=== PATIENT | female | born 1935 | race Caucasian/White ===

== ENCOUNTER 2022-04-27 04:44 | Day surgery (SDC) | payer OTHER ==
[2022-04-23 14:26] VITALS: BMI 29.2
[~2022-04-27 04:44] MED LIST: LIDOCAINE HCL 1% PRESERVATIVE FREE - 30ML VIAL IJ ONE; LIDOCAINE HCL/PF 2% SDV 5ML VIAL PNB ONE
[2022-04-27] MEDS ORDERED: LIDOCAINE HCL/PF 1% SDV 5ML VIAL ONE (07:32)
[2022-04-27] MEDS ORDERED: LIDOCAINE HCL/PF 2% SDV 5ML VIAL ONE (07:50)
[2022-04-27] MEDS ORDERED: LIDOCAINE HCL/PF 2% SDV 5ML VIAL PNB ONE ×2 (11:19→12:00)
[2022-04-27] MEDS ORDERED: LIDOCAINE HCL 1% PRESERVATIVE FREE - 30ML VIAL IJ ONE ×3 (11:19→11:59)
[2022-04-27 12:37] VITALS: TEMP 98.2
[2022-04-27 13:21] VITALS: BP 144/65; PULSE 77
== END 2022-04-27 13:15 | disposition home or self-care (01) ==
LOC: JASU-SURG 04:44
PROVIDERS: ATTEND Pain Medicine Pain Medicine
PROC: 01HY3MZ Insertion of Neurostimulator Lead into Peripheral Nerve, Percutaneous Approach (ICD-10-PCS; principal; 2022-04-27 08:00)
DX: G89.4 Chronic pain syndrome (principal); M25.512 Pain in left shoulder
CPT/HCPCS: 64555; C1897

== ENCOUNTER 2022-05-25 04:19 | Day surgery (SDC) | payer OTHER ==
[2022-05-24 10:14] VITALS: BMI 29.2
[2022-05-25] MEDS ORDERED: DEXAMETHASONE SOD PHOSPHATE 10 MG/1 ML VIAL ONE (07:13)
[2022-05-25] MEDS ORDERED: LIDOCAINE HCL/PF 1% SDV 5ML VIAL ONE (07:13)
[2022-05-25] MEDS ORDERED: BUPIVACAINE HCL/PF 0.5% (5MG/ML) 10 ML VIAL ONE (07:13)
[2022-05-25] MEDS ORDERED: LIDOCAINE HCL 1%, 10 MG/ML (20ML VIAL) INF ONE ×2 (13:52)
[2022-05-25] MEDS ORDERED: BUPIVACAINE HCL/PF 0.5% (5MG/ML) 10 ML VIAL IJ ONE ×2 (13:52)
[2022-05-25 15:01] VITALS: BP 160/87; PULSE 84; RESP 20; TEMP 98.3
== END 2022-05-25 14:43 | disposition home or self-care (01) ==
LOC: JASU-SURG 04:19
PROVIDERS: ATTEND Pain Medicine Pain Medicine
PROC: 01HY3MZ Insertion of Neurostimulator Lead into Peripheral Nerve, Percutaneous Approach (ICD-10-PCS; principal; 2022-05-25 09:30)
DX: G89.4 Chronic pain syndrome (principal); M25.512 Pain in left shoulder
CPT/HCPCS: 64555; C1778; J1100

== ENCOUNTER 2023-03-15 04:10 | Day surgery (SDC) | payer OTHER ==
[2023-02-18 11:28] VITALS: BMI 28.3
[~2023-03-15 04:10] MED LIST changes: +ACETAMINOPHEN 500 MG TABLET (FP) PO PRN; -LIDOCAINE HCL 1% PRESERVATIVE FREE - 30ML VIAL IJ ONE; -LIDOCAINE HCL/PF 2% SDV 5ML VIAL PNB ONE
[2023-03-15] MEDS ORDERED: BUPIVACAINE HCL/PF 0.75% 10 ML VIAL ONE (07:25)
[2023-03-15] MEDS ORDERED: DEXAMETHASONE SOD PHOSPHATE 10 MG/1 ML VIAL ONE (07:25)
[2023-03-15] MEDS ORDERED: TRIAMCINOLONE ACET 40MG/1ML VIAL ONE (07:25)
[2023-03-15] MEDS ORDERED: LIDOCAINE HCL/PF 1% SDV 5ML VIAL ONE (07:25)
[2023-03-15 09:19] VITALS: RESP 18
[2023-03-15 09:34] VITALS: BP 160/70; TEMP 98
[2023-03-15 09:38] VITALS: PULSE 88
[2023-03-15] MEDS ORDERED: ACETAMINOPHEN 500 MG TABLET (FP) PO PRN (12:32)
== END 2023-03-15 09:30 | disposition home or self-care (01) ==
LOC: JASU-SURG 04:10
PROVIDERS: ATTEND Pain Medicine Pain Medicine
PROC: 01HY3MZ Insertion of Neurostimulator Lead into Peripheral Nerve, Percutaneous Approach (ICD-10-PCS; principal; 2023-03-15 08:40)
DX: G89.4 Chronic pain syndrome (principal)
CPT/HCPCS: 64555; C1778; J1100

== ENCOUNTER 2024-02-24 03:42 | Day surgery (SDC) | payer OTHER ==
[2024-01-27 17:27] VITALS: BMI 29.7
[2024-02-24] MEDS ORDERED: LIDOCAINE HCL/PF 1% SDV 5ML VIAL ONE (06:59)
[2024-02-24] MEDS ORDERED: ACETAMINOPHEN 500 MG TABLET (FP) PO PRN (10:25)
[2024-02-24] MEDS: LIDOCAINE HCL 1% PRESERVATIVE FREE - 30ML VIAL IJ ONE ×2 (10:43)
[2024-02-24 11:36] VITALS: BP 127/56; PULSE 72; RESP 20; TEMP 97.3
== END 2024-02-24 11:38 | disposition home or self-care (01) ==
LOC: JASU-SURG 03:42
PROVIDERS: ATTEND Pain Medicine Pain Medicine
PROC: 01HY3MZ Insertion of Neurostimulator Lead into Peripheral Nerve, Percutaneous Approach (ICD-10-PCS; principal; 2024-02-24 09:30)
DX: G89.4 Chronic pain syndrome (principal); M54.31 Sciatica, right side
CPT/HCPCS: 64555; C1778

== ENCOUNTER 2024-03-29 04:03 | Day surgery (SDC) | payer OTHER ==
[2024-03-22 15:13] VITALS: BMI 29.7
[2024-03-29] MEDS ORDERED: LIDOCAINE HCL/PF 1% SDV 5ML VIAL ONE (07:08)
[2024-03-29 07:36] VITALS: RESP 16
[2024-03-29] MEDS: LIDOCAINE 1% P/F 10 MG/ML VIAL INF ONE (09:08)
[2024-03-29 09:26] VITALS: BP 128/68; PULSE 62; TEMP 97.7
== END 2024-03-29 10:12 | disposition home or self-care (01) ==
LOC: JASU-SURG 04:03
PROVIDERS: ATTEND Pain Medicine Pain Medicine
PROC: 01HY3MZ Insertion of Neurostimulator Lead into Peripheral Nerve, Percutaneous Approach (ICD-10-PCS; principal; 2024-03-29 08:45)
DX: G89.4 Chronic pain syndrome (principal); M25.512 Pain in left shoulder
CPT/HCPCS: 64555; C1778

== ENCOUNTER 2024-05-04 04:08 | Day surgery (SDC) | payer OTHER ==
[2024-05-02 12:04] VITALS: BMI 30.1
[2024-05-04] MEDS ORDERED: LIDOCAINE HCL/PF 1% SDV 5ML VIAL ONE (07:14)
[2024-05-04] MEDS: LIDOCAINE 1% P/F 10 MG/ML VIAL PNB ONE (08:42)
[2024-05-04 09:09] VITALS: PULSE 70; RESP 20; TEMP 98
[2024-05-04] MEDS ORDERED: ACETAMINOPHEN 500 MG TABLET (FP) PO PRN (09:20)
[2024-05-04 09:22] VITALS: BP 106/61
== END 2024-05-04 09:42 | disposition home or self-care (01) ==
LOC: JASU-SURG 04:08
PROVIDERS: ATTEND Pain Medicine Pain Medicine
PROC: 01HY3MZ Insertion of Neurostimulator Lead into Peripheral Nerve, Percutaneous Approach (ICD-10-PCS; principal; 2024-05-04 08:42)
DX: G89.4 Chronic pain syndrome (principal); M25.512 Pain in left shoulder
CPT/HCPCS: 64555; C1778

== ENCOUNTER 2024-05-17 05:04 | Day surgery (SDC) | payer OTHER ==
[2024-05-17] MEDS ORDERED: LIDOCAINE HCL/PF 1% SDV 5ML VIAL ONE (07:11)
[2024-05-17] MEDS: LIDOCAINE 1% P/F 10 MG/ML VIAL INF ONE ×2 (10:00)
[2024-05-17 10:27] VITALS: BP 150/61; PULSE 70; RESP 20; TEMP 98.1
== END 2024-05-17 11:08 | disposition home or self-care (01) ==
LOC: JASU-SURG 05:04
PROVIDERS: ATTEND Pain Medicine Pain Medicine
PROC: 01HY3MZ Insertion of Neurostimulator Lead into Peripheral Nerve, Percutaneous Approach (ICD-10-PCS; principal; 2024-05-17 09:00)
DX: G89.4 Chronic pain syndrome (principal)
CPT/HCPCS: 64555; C1778

== ENCOUNTER 2024-07-12 04:08 | Day surgery (SDC) | payer OTHER ==
[2024-07-12] MEDS ORDERED: LIDOCAINE HCL/PF 1% SDV 5ML VIAL ONE (07:23)
[2024-07-12] MEDS ORDERED: DEXAMETHASONE SOD PHOSPHATE 10 MG/1 ML VIAL ONE ×2 (07:24→11:25)
[2024-07-12 09:28] VITALS: RESP 17
[2024-07-12] MEDS ORDERED: ACETAMINOPHEN 500 MG TABLET (FP) PO PRN (10:49)
[2024-07-12] MEDS: LIDOCAINE HCL 1% PRESERVATIVE FREE - 30ML VIAL IJ ONE (11:29)
[2024-07-12] MEDS: DEXAMETHASONE SOD PHOSPHATE 10 MG/1 ML VIAL IVPUSH ONE (11:30)
[2024-07-12] MEDS: IOHEXOL 180 MG/1 ML ML IJ ONE (11:32)
[2024-07-12 12:48] VITALS: BP 133/61; PULSE 63; TEMP 97.7
== END 2024-07-12 12:00 | disposition home or self-care (01) ==
LOC: JASU-SURG 04:08
PROVIDERS: ATTEND Pain Medicine Pain Medicine
PROC: 3E0R3BZ Introduction of Anesthetic Agent into Spinal Canal, Percutaneous Approach (ICD-10-PCS; 2024-07-12)
PROC: 3E0R33Z Introduction of Anti-inflammatory into Spinal Canal, Percutaneous Approach (ICD-10-PCS; principal; 2024-07-12 10:30)
DX: M54.16 Radiculopathy, lumbar region (principal); M48.061 Spinal stenosis, lumbar region without neurogenic claudication
CPT/HCPCS: 76000-TC-FY; J1100

== ENCOUNTER 2024-09-06 04:14 | Day surgery (SDC) | payer OTHER ==
[2024-09-06] MEDS ORDERED: ACETAMINOPHEN 500 MG TABLET (FP) PO PRN (09:22)
[2024-09-06 14:09] VITALS: RESP 18
[2024-09-06] MEDS ORDERED: LIDOCAINE HCL/PF 1% SDV 5ML VIAL ONE (15:06)
[2024-09-06] MEDS: LIDOCAINE HCL 1% PRESERVATIVE FREE - 30ML VIAL NR ONE (15:22)
[2024-09-06] MEDS: DEXAMETHASONE SOD PHOSPHATE 10 MG/1 ML VIAL IVPUSH ONE (15:22)
[2024-09-06] MEDS: IOHEXOL 180 MG/1 ML ML IJ ONE (15:22)
[2024-09-06 16:20] VITALS: BP 139/50; PULSE 64; TEMP 97.5
== END 2024-09-06 15:50 | disposition home or self-care (01) ==
LOC: JASU-SURG 04:14
PROVIDERS: ATTEND Pain Medicine Pain Medicine
PROC: 3E0R3BZ Introduction of Anesthetic Agent into Spinal Canal, Percutaneous Approach (ICD-10-PCS; 2024-09-06)
PROC: 3E0R33Z Introduction of Anti-inflammatory into Spinal Canal, Percutaneous Approach (ICD-10-PCS; principal; 2024-09-06 15:45)
DX: M48.061 Spinal stenosis, lumbar region without neurogenic claudication (principal); M54.16 Radiculopathy, lumbar region
CPT/HCPCS: 76000-TC-FY; J1100

== ENCOUNTER 2024-11-02 04:10 | Day surgery (SDC) | payer OTHER ==
[2024-11-02] MEDS ORDERED: LIDOCAINE HCL/PF 2% SDV 5ML VIAL ONE ×2 (07:08→07:32)
[2024-11-02] MEDS ORDERED: LIDOCAINE HCL/PF 1% SDV 5ML VIAL ONE ×2 (07:08→07:32)
[2024-11-02] MEDS ORDERED: MIDAZOLAM HCL 2 MG/2 ML SINGLE DOSE VIAL ONE ×2 (07:57→08:17)
[2024-11-02] MEDS ORDERED: ceFAZolin SODIUM 1 GM VIAL ONE (08:13)
[2024-11-02] MEDS: ceFAZolin SODIUM 1 GM VIAL IVPB ONE (08:14)
[2024-11-02] MEDS ORDERED: DEXAMETHASONE SOD PHOSPHATE 4 MG/1 ML VIAL ONE (08:24)
[2024-11-02] MEDS ORDERED: ONDANSETRON 4 MG/2 ML VIAL ONE (08:24)
[2024-11-02] MEDS: LIDOCAINE HCL 1% PRESERVATIVE FREE - 30ML VIAL IJ ONE ×3 (08:26)
[2024-11-02] MEDS: LIDOCAINE HCL/PF 2% SDV 5ML VIAL INF ONE ×3 (08:41)
[2024-11-02] MEDS ORDERED: ACETAMINOPHEN 500 MG TABLET (FP) PO PRN (08:42)
[2024-11-02] MEDS: IOHEXOL 180 MG/1 ML ML IJ ONE ×3 (08:55)
[2024-11-02] MEDS: DEXAMETHASONE SOD PHOSPHATE 10 MG/1 ML VIAL IM ONE ×2 (09:00)
[2024-11-02 11:37] VITALS: TEMP 97.7
[2024-11-02 11:45] VITALS: BP 106/60; PULSE 60; RESP 18
== END 2024-11-02 11:47 | disposition home or self-care (01) ==
LOC: JASU-SURG 04:10
PROVIDERS: ATTEND Pain Medicine Pain Medicine
PROC: 01NB0ZZ Release Lumbar Nerve, Open Approach (ICD-10-PCS; principal; 2024-11-02 08:00)
DX: M48.062 Spinal stenosis, lumbar region with neurogenic claudication (principal)
CPT/HCPCS: 0275T; C1889; 76000-TC-FY; 88304-TC; 94760; J1100